=== PATIENT | male | born 1950 | race Caucasian/White ===

== ENCOUNTER 2016-08-02 10:37 | Inpatient (IN) | payer MEDICAID ==
[~2016-08-02] VITALS: Ht 180.3 cm; Wt 82.3 kg
[2016-08-02] MEDS ORDERED: SODIUM CHLORIDE 0.9% 1,000ML IVBOLUS ONE (11:30)
[2016-08-02] MEDS ORDERED: SODIUM CHLORIDE FLUSH 10ML SYR IVF ONE (11:30)
[2016-08-02 11:40] LABS: ASPARTATE AMINO TRANSFERASE 33 U/L (15-37); BLOOD UREA NITROGEN 16 mg/dL (7-18)
[2016-08-02 11:48] LABS: DIFF TOTAL CELLS COUNTED 100 CELL DIFF
[2016-08-02 11:50] LABS: IS PT STATUS REG ER OR PRE ER? YES
[2016-08-02 11:51] LABS: ANISOCYTOSIS 1+; VERIFY COUNTS? YES
[2016-08-02] MEDS ORDERED: HEPARIN 5,000 UNITS/ML, 1ML IV ONE (13:00)
[2016-08-02] MEDS ORDERED: SODIUM CHLORIDE 0.9% 1,000 ML IV SCH (13:33)
[2016-08-02] MEDS ORDERED: MORPHINE SULFATE 4 MG/ML, 1ML IVPush PRN (14:00)
[2016-08-02] MEDS ORDERED: POLYETHYLENE GLYCOL 17 GM PACKET PO PRN (14:00)
[2016-08-02] MEDS ORDERED: LABETALOL 5MG/ML, 20ML IV PRN (14:00)
[2016-08-02] MEDS ORDERED: DOCUSATE 100 MG CAPSULE PO PRN (14:00)
[2016-08-02] MEDS ORDERED: GUAIFENESIN/DM 200-20MG, 10ML UDC PO PRN (14:00)
[2016-08-02] MEDS ORDERED: HYDROcodone/APAP 5/325 TABLET PO PRN (14:00)
[2016-08-02] MEDS ORDERED: PROMETHAZINE 25 MG/ML, 1ML IM PRN (14:00)
[2016-08-02] MEDS ORDERED: LORazepam 2 MG/ML, 1ML IVPush PRN (14:00)
[2016-08-02] MEDS ORDERED: ACETAMINOPHEN 325 MG TABLET PO PRN (14:00)
[2016-08-02] MEDS ORDERED: HEPARIN 5,000 UNITS/ML, 1ML ONE (14:23)
[2016-08-02] MEDS ORDERED: HEPARIN 25,000 UNITS/500ML PMX 500 ML ONE (14:24)
[2016-08-02] MEDS: HEPARIN 25,000 UNITS/500ML PMX 500 ML IV PRN (14:36)
[2016-08-02 15:30] VITALS: BP 110/81
[2016-08-02] MEDS ORDERED: ALBUTEROL SULFATE 2.5 MG/3 ML NPPB PRN (17:30)
[2016-08-02 18:14] LABS: IS PT STATUS REG ER OR PRE ER? NO
[2016-08-02] MEDS ORDERED: OMNIPAQUE 350 MG/ML, 100ML BOTTLE ONE (18:15)
[2016-08-02] MEDS ORDERED: ASPIRIN 81 MG TABLET CHEW PO ONE (19:30)
[2016-08-02 20:47] VITALS: BP 138/95
[2016-08-02] MEDS: NICOTINE 7 MG/24 HR PATCH.TD24 TD SCH (21:38)
[2016-08-02] MEDS: ATORVASTATIN 80 MG TABLET PO SCH (21:38)
[2016-08-02] MEDS: HEPARIN 5,000 UNITS/ML, 1ML IV PRN (22:22)
[2016-08-03 00:13] LABS: IS PT STATUS REG ER OR PRE ER? NO
[2016-08-03 05:18] LABS: BLOOD UREA NITROGEN 20 mg/dL (7-18)
[2016-08-03 05:26] LABS: ASPARTATE AMINO TRANSFERASE 34 U/L (15-37)
[2016-08-03] MEDS: HEPARIN 5,000 UNITS/ML, 1ML IV PRN ×3 (05:37→20:59)
[2016-08-03 06:32] VITALS: BP 127/81
[2016-08-03 06:47] LABS: DIFF TOTAL CELLS COUNTED 100 CELL DIFF
[2016-08-03 06:48] LABS: VERIFY COUNTS? YES
[2016-08-03 06:49] LABS: ANISOCYTOSIS 1+
[2016-08-03] MEDS ORDERED: POTASSIUM CHLORIDE 20 MEQ TAB.ER.PRT PO ONE (07:30)
[2016-08-03] MEDS ORDERED: ASPIRIN 81 MG TABLET CHEW PO SCH (09:00)
[2016-08-03 09:31] VITALS: BP_SYST 123; BP_SYST 129; BP_SYST 132; BP_DIAS 77; BP_DIAS 83; BP_DIAS 87
[2016-08-03 13:06] LABS: DAU SCREEN DISCLAIMER
[2016-08-03 13:19] LABS: PATH.CAST-FLAG NOT PRESENT; SPERM-FLAG NOT PRESENT; SRC-FLAG NOT PRESENT; XTAL-FLAG NOT PRESENT; YLC-FLAG NOT PRESENT
[2016-08-03] MEDS: HEPARIN 25,000 UNITS/500ML PMX 500 ML IV PRN (14:34)
[2016-08-03] MEDS: NICOTINE 7 MG/24 HR PATCH.TD24 TD SCH (14:35)
[2016-08-03 16:23] VITALS: BP 144/85
[2016-08-03] MEDS: ATORVASTATIN 80 MG TABLET PO SCH (21:00)
[2016-08-03 21:35] VITALS: BP 151/95
[2016-08-04 01:10] VITALS: BP 147/92
[2016-08-04 03:18] LABS: BLOOD UREA NITROGEN 12 mg/dL (7-18)
[2016-08-04 07:08] VITALS: BP 148/88
[2016-08-04] MEDS ORDERED: POTASSIUM CHLORIDE 20 MEQ TAB.ER.PRT PO ONE (08:00)
[2016-08-04 09:01] LABS: HIT LOT CART23704/KIT23705
[2016-08-04 10:36] LABS: HIT OBC PASS; HIT RESULT NEGATIVE (NEGATIVE)
[2016-08-04] MEDS: DABIGATRAN 150 MG CAPSULE PO SCH ×2 (10:59→21:45)
[2016-08-04] MEDS: NICOTINE 7 MG/24 HR PATCH.TD24 TD SCH (14:00)
[2016-08-04 15:53] VITALS: BP 159/97
[2016-08-04 20:28] VITALS: BP 155/95
[2016-08-04] MEDS: ATORVASTATIN 80 MG TABLET PO SCH (21:45)
[2016-08-05 01:55] VITALS: BP 163/96
[2016-08-05 06:52] VITALS: BP 174/113
[2016-08-05 07:28] LABS: BLOOD UREA NITROGEN 9 mg/dL (7-18)
[2016-08-05] MEDS ORDERED: hydrALAzine 20 MG/ML, 1ML IV PRN (08:30)
[2016-08-05] MEDS: LISINOPRIL 10 MG TABLET PO SCH ×2 (09:45→20:58)
[2016-08-05 09:47] VITALS: BP 158/88
[2016-08-05 11:28] LABS: DIFF TOTAL CELLS COUNTED 100 CELL DIFF
[2016-08-05 11:31] LABS: VERIFY COUNTS? YES
[2016-08-05 11:33] LABS: ANISOCYTOSIS 1+; LARGE PLATELETS 1+
[2016-08-05 12:25] VITALS: BP 148/88
[2016-08-05] MEDS: DABIGATRAN 150 MG CAPSULE PO SCH ×2 (13:31→20:58)
[2016-08-05] MEDS: NICOTINE 7 MG/24 HR PATCH.TD24 TD SCH (14:00)
[2016-08-05] MEDS ORDERED: BENZ100C PO (14:01)
[2016-08-05] MEDS ORDERED: GUAI5SYR PO (14:01)
[2016-08-05] MEDS ORDERED: DABI150C PO (14:01)
[2016-08-05] MEDS ORDERED: LISI-167 PO (14:01)
[2016-08-05] MEDS: BENZONATATE 100 MG CAPSULE PO SCH ×2 (16:00→21:02)
[2016-08-05] MEDS ORDERED: GUAIFENESIN/DM 200-20MG, 10ML UDC PO PRN (16:00)
[2016-08-05 18:49] VITALS: BP 152/106
[2016-08-05] MEDS: ATORVASTATIN 80 MG TABLET PO SCH (20:58)
[2016-08-06 02:26] VITALS: BP 167/101
[2016-08-06 07:02] VITALS: BP 149/93
[2016-08-06 08:02] LABS: DIFF TOTAL CELLS COUNTED 100 CELL DIFF
[2016-08-06 08:10] LABS: VERIFY COUNTS? YES
[2016-08-06] MEDS: LISINOPRIL 10 MG TABLET PO SCH (09:16)
[2016-08-06] MEDS: DABIGATRAN 150 MG CAPSULE PO SCH (09:16)
[2016-08-06] MEDS: BENZONATATE 100 MG CAPSULE PO SCH (09:16)
== END 2016-08-06 11:56 | disposition home or self-care (01) | DRG 280 ==
LOC: ED 12:55 → EDIP 12:56 → 5SO 15:10 → DCLOUNGE 08-06 11:36
PROVIDERS: ADMIT Family Medicine
DX: I82.431 Acute embolism and thrombosis of right popliteal vein (principal); I26.09 Other pulmonary embolism with acute cor pulmonale; I21.4 Non-ST elevation (NSTEMI) myocardial infarction; N17.0 Acute kidney failure with tubular necrosis; J96.01 Acute respiratory failure with hypoxia; D68.9 Coagulation defect, unspecified; D68.59 Other primary thrombophilia; I82.441 Acute embolism and thrombosis of right tibial vein; F20.9 Schizophrenia, unspecified; I45.10 Unspecified right bundle-branch block; D72.829 Elevated white blood cell count, unspecified; D64.9 Anemia, unspecified; D75.82 Heparin induced thrombocytopenia (HIT); F17.210 Nicotine dependence, cigarettes, uncomplicated; Z59.0 Homelessness; Z84.1 Family history of disorders of kidney and ureter
CPT/HCPCS: 36415; 71010; 71275; 80048; 80053; 80061; 80307; 81001; 82542; 83735; 83880; 84100; 84439; 84443; 84484; 85025; 85379; 85520; 85610; 85730; 86022; 93005; 93306; 93880; 93970; J1644; Q9967; J7030

== ENCOUNTER 2016-08-07 15:00 | Emergency (ER) | payer MEDICARE, MEDICAID ==
[~2016-08-07] VITALS: Ht 180.3 cm; Wt 90.6 kg
[~2016-08-07 15:00] MED LIST: BENZ100C PO; DABI150C PO; GUAI5SYR PO; LISI-167 PO
[2016-08-07] MEDS ORDERED: SODIUM CHLORIDE 0.9% 1,000ML IVBOLUS ONE (16:00)
[2016-08-07 16:08] LABS: BLOOD UREA NITROGEN 33 mg/dL (7-18)
[2016-08-07 16:14] LABS: ASPARTATE AMINO TRANSFERASE 67 U/L (15-37)
[2016-08-07 18:37] VITALS: BP 114/78
== END 2016-08-07 18:51 | disposition home or self-care (01) ==
LOC: ED 18:30
DX: R53.1 Weakness (principal); F17.210 Nicotine dependence, cigarettes, uncomplicated; Z86.711 Personal history of pulmonary embolism; Z86.718 Personal history of other venous thrombosis and embolism; Z59.0 Homelessness
CPT/HCPCS: 36415; 71010; 80053; 80307; 85025; 85610; 93005; 96360; 96361; 99285; J7030

== ENCOUNTER 2016-08-10 19:56 | Emergency (ER) | payer MEDICARE, MEDICAID ==
[~2016-08-10] VITALS: Ht 180.3 cm; Wt 94.0 kg
[2016-08-10] MEDS ORDERED: SODIUM CHLORIDE 0.9% 1,000 ML IV ONE (20:59)
[2016-08-10] MEDS ORDERED: SODIUM CHLORIDE FLUSH 10ML SYR IVF ONE (21:00)
[2016-08-10 21:32] LABS: BLOOD UREA NITROGEN 17 mg/dL (7-18)
[2016-08-10 21:52] LABS: IS PT STATUS REG ER OR PRE ER? YES
[2016-08-10] MEDS ORDERED: OMNIPAQUE 350 MG/ML, 100ML BOTTLE ONE (22:07)
[2016-08-10 23:01] VITALS: BP 133/73
== END 2016-08-10 23:32 | disposition home or self-care (01) ==
LOC: ED 23:26
DX: R06.00 Dyspnea, unspecified (principal); R53.1 Weakness; Z72.89 Other problems related to lifestyle; R05 Cough; F17.200 Nicotine dependence, unspecified, uncomplicated; Z86.711 Personal history of pulmonary embolism; Z86.718 Personal history of other venous thrombosis and embolism
CPT/HCPCS: 36415; 71020; 71275; 80048; 82040; 83880; 84484; 85025; 85610; 85730; 93005; 96360; 96361; 99285; J7030; Q9967

== ENCOUNTER 2016-08-12 18:56 | Emergency (ER) | payer MEDICARE, MEDICAID ==
[~2016-08-12] VITALS: Ht 180.3 cm; Wt 94.2 kg
[2016-08-12 18:58] VITALS: BP 194/108
[2016-08-12] MEDS ORDERED: DABIGATRAN 150 MG CAPSULE PO ONE (20:30)
== END 2016-08-12 21:08 | disposition home or self-care (01) ==
LOC: ED 21:02
DX: I82.491 Acute embolism and thrombosis of other specified deep vein of right lower extremity (principal); Z86.711 Personal history of pulmonary embolism; J96.90 Respiratory failure, unspecified, unspecified whether with hypoxia or hypercapnia; F17.200 Nicotine dependence, unspecified, uncomplicated
CPT/HCPCS: 71010; 99283

== ENCOUNTER 2017-05-13 23:15 | Emergency (ER) | payer MEDICARE, MEDICAID ==
[~2017-05-13] VITALS: Ht 182.9 cm; Wt 87.9 kg
[2017-05-13 23:57] VITALS: BP 134/68
== END 2017-05-14 00:04 | disposition home or self-care (01) ==
LOC: ED 23:36
DX: Z00.00 Encounter for general adult medical examination without abnormal findings (principal); I10 Essential (primary) hypertension
CPT/HCPCS: 99283

== ENCOUNTER 2020-03-01 11:16 | Inpatient (IN) | payer MEDICAID, MEDICARE, OTHER ==
[~2020-03-01] VITALS: Ht 182.9 cm; Wt 92.3 kg
--- NOTE | 2020-03-01 11:26 | NUR ---
BIB [facility], PT LAYING ON SIDEWALK, STATES UNABLE TO WALK. BROUGHT HERE, PT DENIES ETOH USE TODAY. DENIES CP/SOB. FSBG 90 PER EMS. PT AO X4 PT ARRIVES WITH BUGS CRAWLING ON HIM. CHARGE UPDATED, PT NEEDING DECON AND NEW ROOM PLACEMENT.
[2020-03-01] MEDS ORDERED: PIPERONYL BUTOXIDE/PYRETHRINS 4OZ. SHAMPOO ONE (11:57)
[2020-03-01] MEDS ORDERED: PIPERONYL BUTOXIDE/PYRETHRINS 4OZ. SHAMPOO TP SCH (12:00)
--- NOTE | 2020-03-01 12:44 | NUR ---
DECONED PT FOR BUGS. PT REFUSED FOR US TO SHAVE HIS MATTED HAIR AND BEARED.
--- NOTE | 2020-03-01 12:49 | NUR ---
PT WITH MULTIPLE INCONTINENT LOOSE STOOLS IN DECON RM AND IN WHEELCHAIR COMING BACK TO CLEAN RM.
--- NOTE | 2020-03-01 12:58 | NUR ---
DELAY IN CARE D/T DECON PROCESS. LAB IN TO DRAW PT AT THIS TIME. PT REQUESTING WATER, WILL WAIT FOR LAB RESULTS PER ERP
--- NOTE | 2020-03-01 13:00 | NUR ---
PT BELONGINGS PLACED IN DOUBLE BAGS AND IN RM WITH PT
[2020-03-01 13:09] LABS: BASOPHILS % (AUTO) 0 % (0-1); EOSINOPHILS % (AUTO) 0 % (1-7); LYMPHOCYTES % (AUTO) 6 % (22-44); MEAN CORPUSCULAR HEMOGLOBIN 33.1 pg (27.5-34.5); MEAN CORPUSCULAR HGB CONC 33.5 g/dL (33.2-36.2); MONOCYTES % (AUTO) 6 % (2-9); NEUTROPHILS % (AUTO) 89 % (42-75); PLATELET COUNT 101 x10^3/uL (130-400); RED BLOOD COUNT 5.42 x10^6/uL (4.38-5.82); RED CELL DISTRIBUTION WIDTH 13.7 % (9.4-14.8)
[2020-03-01 13:19] LABS: ALBUMIN 3.1 g/dL (3.4-5.0); ANION GAP 12 mmol/L (5-15); CALCIUM 8.5 mg/dL (8.5-10.1); CHLORIDE 107 mmol/L (98-107); CREATININE 1.24 mg/dL (0.7-1.3)
[2020-03-01 13:57] LABS: MD SCAN
[2020-03-01] MEDS ORDERED: SODIUM CHLORIDE 0.9% 1,000ML IVBOLUS ONE (14:30)
[2020-03-01] MEDS ORDERED: ONDANSETRON 2MG/ML, 2ML IVPush PRN (16:00)
[2020-03-01] MEDS ORDERED: ONDANSETRON ODT 4 MG PO PRN (16:00)
--- NOTE | 2020-03-01 16:00 | NUR ---
PIV INITIATED PER BREAK RN, PT MEDICATED PER JUN. TO BE ADMITTED
--- NOTE | 2020-03-01 16:45 | NUR ---
REPORT GIVEN TO RECANJALI JACKSON
--- NOTE | 2020-03-01 17:10 | NUR ---
RECIEVING RN CALLED TO INFORM ORDER HAS BEEN CHANGED TO COVID R/O
[2020-03-01] MEDS ORDERED: CEFTRIAXONE PMX 1GM/50ML 50 ML ONE (17:16)
[2020-03-01] MEDS: SODIUM CHLORIDE 0.9% 1,000 ML IV SCH ×2 (17:32→23:14)
[2020-03-01] MEDS: CEFTRIAXONE PMX 1GM/50ML 50 ML IV SCH (17:32)
--- NOTE | 2020-03-01 17:33 | NUR ---
COVID SWABBED OBTAINED AND WALKED TO LAB. PT MEDICATED PER MAR, VSS, MEAL TRAY ORDERED
--- NOTE | 2020-03-01 19:03 | NUR ---
Report received from RENETTA Jolly. This RN to assume care.
--- NOTE | 2020-03-01 19:45 | NUR ---
Provided sandwich to patient.
--- NOTE | 2020-03-01 21:23 | NUR ---
Report given to RENETTA Krishnan. Patient transferred to room 334.
[2020-03-01 21:37] VITALS: BP 122/89
[2020-03-01] MEDS: DOXYCYCLINE 100 MG in DEXTROSE 5% 250 ML IV SCH (23:14)
[2020-03-01] MEDS: ENOXAPARIN 40 MG/0.4 ML SQ SCH (23:15)
[2020-03-02 00:48] VITALS: BP 120/88
[2020-03-02 06:12] LABS: CHLORIDE 110 mmol/L (98-107)
[2020-03-02 06:34] LABS: ALANINE AMINOTRANSFERASE 97 U/L (12-78); ALBUMIN 2.6 g/dL (3.4-5.0); ALKALINE PHOSPHATASE 73 U/L (45-117); ANION GAP 12 mmol/L (5-15); BILIRUBIN,TOTAL 0.8 mg/dL (0.2-1.0); CREATINE KINASE, TOTAL 6622 U/L (39-308); TOTAL PROTEIN 6.9 g/dL (6.4-8.2)
[2020-03-02 06:50] VITALS: BP 127/97
[2020-03-02 07:41] LABS: BASOPHILS % (AUTO) 0 % (0-1); EOSINOPHILS % (AUTO) 0 % (1-7); LYMPHOCYTES % (AUTO) 9 % (22-44); MEAN CORPUSCULAR HEMOGLOBIN 32.8 pg (27.5-34.5); MEAN CORPUSCULAR HGB CONC 33.6 g/dL (33.2-36.2); MEAN PLATELET VOLUME 9.7 fL (7.4-10.4); MONOCYTES % (AUTO) 6 % (2-9); NEUTROPHILS % (AUTO) 85 % (42-75); PLATELET COUNT 106 x10^3/uL (130-400); RED BLOOD COUNT 4.75 x10^6/uL (4.38-5.82); RED CELL DISTRIBUTION WIDTH 13.9 % (9.4-14.8)
[2020-03-02 07:56] LABS: MD NO
[2020-03-02] MEDS: SODIUM CHLORIDE 0.9% 1,000 ML IV SCH ×3 (11:38→20:20)
[2020-03-02] MEDS: DOXYCYCLINE 100 MG in DEXTROSE 5% 250 ML IV SCH ×2 (11:38→23:29)
[2020-03-02 12:51] VITALS: BP 120/87
[2020-03-02] MEDS: CEFTRIAXONE PMX 1GM/50ML 50 ML IV SCH (17:04)
[2020-03-02 19:07] VITALS: BP 113/80
[2020-03-02] MEDS: ENOXAPARIN 40 MG/0.4 ML SQ SCH (21:00)
[2020-03-03] MEDS ORDERED: PIPERONYL BUTOXIDE/PYRETHRINS 4OZ. SHAMPOO TP SCH (00:43)
[2020-03-03 01:20] VITALS: BP 122/94
[2020-03-03] MEDS: SODIUM CHLORIDE 0.9% 1,000 ML IV SCH ×3 (05:10→22:00)
[2020-03-03 05:18] LABS: MEAN CORPUSCULAR HEMOGLOBIN 33.1 pg (27.5-34.5); MEAN CORPUSCULAR HGB CONC 34.2 g/dL (33.2-36.2); MEAN PLATELET VOLUME 8.9 fL (7.4-10.4); PLATELET COUNT 118 x10^3/uL (130-400); RED BLOOD COUNT 4.31 x10^6/uL (4.38-5.82); RED CELL DISTRIBUTION WIDTH 13.9 % (9.4-14.8)
[2020-03-03 05:23] LABS: ALANINE AMINOTRANSFERASE 90 U/L (12-78); ALBUMIN 2.3 g/dL (3.4-5.0); ANION GAP 7 mmol/L (5-15); CALCIUM 7.8 mg/dL (8.5-10.1); CHLORIDE 108 mmol/L (98-107); CREATININE 1.03 mg/dL (0.7-1.3)
[2020-03-03 05:37] LABS: ALKALINE PHOSPHATASE 65 U/L (45-117); BILIRUBIN,TOTAL 0.7 mg/dL (0.2-1.0); CREATINE KINASE, TOTAL 5161 U/L (39-308); TOTAL PROTEIN 6.2 g/dL (6.4-8.2)
[2020-03-03 06:14] LABS: BASOPHILS % (AUTO) 0 % (0-1); EOSINOPHILS % (AUTO) 0 % (1-7); LYMPHOCYTES % (AUTO) 6 % (22-44); MONOCYTES % (AUTO) 4 % (2-9); NEUTROPHILS % (AUTO) 90 % (42-75)
[2020-03-03 06:15] LABS: MD SCAN
[2020-03-03 07:49] VITALS: BP 137/93
[2020-03-03 10:06] LABS: BASOPHILS % (AUTO) 0 % (0-1); EOSINOPHILS % (AUTO) 0 % (1-7); LYMPHOCYTES % (AUTO) 9 % (22-44); MEAN CORPUSCULAR HEMOGLOBIN 32.7 pg (27.5-34.5); MEAN CORPUSCULAR HGB CONC 33.1 g/dL (33.2-36.2); MEAN PLATELET VOLUME 9.9 fL (7.4-10.4); MONOCYTES % (AUTO) 4 % (2-9); NEUTROPHILS % (AUTO) 86 % (42-75); PLATELET COUNT 109 x10^3/uL (130-400); RED BLOOD COUNT 4.65 x10^6/uL (4.38-5.82); RED CELL DISTRIBUTION WIDTH 14.1 % (9.4-14.8)
[2020-03-03 10:07] LABS: MD NO
[2020-03-03 10:17] LABS: ANION GAP 7 mmol/L (5-15); CALCIUM 7.8 mg/dL (8.5-10.1); CHLORIDE 112 mmol/L (98-107); CREATININE 1.02 mg/dL (0.7-1.3); INTERNATIONAL NORMALIZED RATIO 1.22 (0.93-1.1); PROTHROMBIN TIME 12.9 Seconds (9.6-11.5)
[2020-03-03] MEDS: DOXYCYCLINE 100 MG in DEXTROSE 5% 250 ML IV SCH (12:14)
[2020-03-03 13:25] VITALS: BP 165/103
[2020-03-03 13:25] LABS: AMPHETAMINE SCREEN, URINE Negative (Negative); BARBITURATE SCREEN, URINE Negative (Negative); BENZODIAZEPINE SCREEN, URINE Negative (Negative); CANNABINOID SCREEN, URINE Negative (Negative); COCAINE SCREEN, URINE Negative (Negative); METHADONE SCREEN, URINE Negative (Negative); OPIATE SCREEN, URINE Negative (Negative)
[2020-03-03 13:26] VITALS: BP 176/102
[2020-03-03] MEDS: CEFTRIAXONE PMX 1GM/50ML 50 ML IV SCH (17:37)
[2020-03-03 20:48] VITALS: BP 153/94
[2020-03-03] MEDS: ENOXAPARIN 40 MG/0.4 ML SQ SCH (21:52)
[2020-03-04] MEDS: DOXYCYCLINE 100 MG in DEXTROSE 5% 250 ML IV SCH ×3 (00:38→23:48)
[2020-03-04] MEDS ORDERED: LIDOCAINE GEL 2%, 5ML TP ONE (02:00)
[2020-03-04] MEDS ORDERED: MORPHINE SULFATE 4 MG/ML, 1ML IVPush ONE (02:00)
[2020-03-04 02:41] VITALS: BP 129/81
[2020-03-04 03:41] LABS: MICROSCOPIC NOT IND
[2020-03-04 05:11] LABS: BASOPHILS % (AUTO) 1 % (0-1); EOSINOPHILS % (AUTO) 2 % (1-7); LYMPHOCYTES % (AUTO) 14 % (22-44); MEAN CORPUSCULAR HEMOGLOBIN 32.6 pg (27.5-34.5); MEAN CORPUSCULAR HGB CONC 33.5 g/dL (33.2-36.2); MONOCYTES % (AUTO) 5 % (2-9); NEUTROPHILS % (AUTO) 79 % (42-75); RED BLOOD COUNT 3.91 x10^6/uL (4.38-5.82); RED CELL DISTRIBUTION WIDTH 13.8 % (9.4-14.8)
[2020-03-04 05:21] LABS: CHLORIDE 111 mmol/L (98-107)
[2020-03-04 05:38] LABS: ALANINE AMINOTRANSFERASE 82 U/L (12-78); ALKALINE PHOSPHATASE 79 U/L (45-117); ANION GAP 7 mmol/L (5-15); BILIRUBIN,TOTAL 0.6 mg/dL (0.2-1.0); CALCIUM 7.3 mg/dL (8.5-10.1); CREATINE KINASE, TOTAL 3128 U/L (39-308); CREATININE 0.65 mg/dL (0.7-1.3); TOTAL PROTEIN 5.5 g/dL (6.4-8.2)
[2020-03-04 07:54] LABS: MEAN PLATELET VOLUME 8.1 fL (7.4-10.4); PLATELET COUNT 78 x10^3/uL (130-400)
[2020-03-04 07:56] LABS: MD SCAN
[2020-03-04] MEDS: SODIUM CHLORIDE 0.9% 1,000 ML IV SCH (08:47)
[2020-03-04 08:50] VITALS: BP 158/91
[2020-03-04 12:01] VITALS: BP 172/109
[2020-03-04 12:06] VITALS: BP 145/107
[2020-03-04 12:08] VITALS: BP 168/109
[2020-03-04] MEDS: CEFTRIAXONE PMX 1GM/50ML 50 ML IV SCH (16:29)
[2020-03-04] MEDS ORDERED: HEPARIN 5,000 UNITS/ML, 1ML IV ONE (17:30)
[2020-03-04 18:47] VITALS: BP 157/91
[2020-03-04 19:47] LABS: BASOPHILS % (AUTO) 1 % (0-1); EOSINOPHILS % (AUTO) 1 % (1-7); LYMPHOCYTES % (AUTO) 16 % (22-44); MEAN CORPUSCULAR HEMOGLOBIN 32.4 pg (27.5-34.5); MEAN CORPUSCULAR HGB CONC 33.3 g/dL (33.2-36.2); MEAN PLATELET VOLUME 9.8 fL (7.4-10.4); MONOCYTES % (AUTO) 6 % (2-9); NEUTROPHILS % (AUTO) 77 % (42-75); PLATELET COUNT 111 x10^3/uL (130-400); RED CELL DISTRIBUTION WIDTH 13.7 % (9.4-14.8)
[2020-03-04 19:56] LABS: MD NO
[2020-03-04] MEDS: ASCORBIC ACID 500 MG TABLET PO SCH (20:40)
[2020-03-04] MEDS: HEPARIN 25,000 UNITS/250ML PMX 250 ML IV PRN (20:49)
[2020-03-05 00:16] VITALS: BP 151/94
[2020-03-05 03:27] LABS: BASOPHILS % (AUTO) 1 % (0-1); EOSINOPHILS % (AUTO) 1 % (1-7); LYMPHOCYTES % (AUTO) 13 % (22-44); MEAN CORPUSCULAR HEMOGLOBIN 32.6 pg (27.5-34.5); MEAN CORPUSCULAR HGB CONC 33.6 g/dL (33.2-36.2); MEAN PLATELET VOLUME 9.8 fL (7.4-10.4); MONOCYTES % (AUTO) 6 % (2-9); NEUTROPHILS % (AUTO) 80 % (42-75); PLATELET COUNT 117 x10^3/uL (130-400); RED BLOOD COUNT 3.96 x10^6/uL (4.38-5.82); RED CELL DISTRIBUTION WIDTH 13.6 % (9.4-14.8)
[2020-03-05 03:34] LABS: ALANINE AMINOTRANSFERASE 82 U/L (12-78); ALBUMIN 1.9 g/dL (3.4-5.0); ANION GAP 6 mmol/L (5-15); CALCIUM 7.3 mg/dL (8.5-10.1); CHLORIDE 105 mmol/L (98-107); CREATININE 0.63 mg/dL (0.7-1.3); MD NO
[2020-03-05 03:36] LABS: ALKALINE PHOSPHATASE 94 U/L (45-117); BILIRUBIN,TOTAL 0.7 mg/dL (0.2-1.0); TOTAL PROTEIN 5.6 g/dL (6.4-8.2)
[2020-03-05] MEDS: HEPARIN 5,000 UNITS/ML, 1ML IV PRN ×3 (03:50→21:46)
[2020-03-05 07:47] VITALS: BP 164/99
[2020-03-05] MEDS: CHOLECALCIFEROL 1,000 UNIT TABLET PO SCH (09:04)
[2020-03-05] MEDS: ZINC SULFATE 220 MG CAPSULE PO SCH (09:04)
[2020-03-05] MEDS: ASCORBIC ACID 500 MG TABLET PO SCH ×2 (09:04→17:08)
[2020-03-05] MEDS: FOLIC ACID 1 MG TABLET PO SCH (09:04)
[2020-03-05] MEDS: DOXYCYCLINE 100 MG in DEXTROSE 5% 250 ML IV SCH (11:48)
[2020-03-05 12:16] VITALS: BP 139/87
[2020-03-05] MEDS: CEFTRIAXONE PMX 1GM/50ML 50 ML IV SCH (17:08)
[2020-03-05] MEDS ORDERED: GADOTERATE 10 MMOL/20 ML SYR ONE (17:56)
[2020-03-05] MEDS: HEPARIN 25,000 UNITS/250ML PMX 250 ML IV PRN (18:11)
[2020-03-05 18:50] VITALS: BP 151/91
[2020-03-06 00:40] VITALS: BP 158/78
[2020-03-06] MEDS: DOXYCYCLINE 100 MG in DEXTROSE 5% 250 ML IV SCH ×2 (00:54→12:52)
[2020-03-06] MEDS: HEPARIN 5,000 UNITS/ML, 1ML IV PRN ×2 (06:05→15:03)
[2020-03-06 08:00] VITALS: BP 139/99
[2020-03-06] MEDS: ASCORBIC ACID 500 MG TABLET PO SCH ×4 (08:00→17:28)
[2020-03-06] MEDS: FOLIC ACID 1 MG TABLET PO SCH ×2 (09:00→10:43)
[2020-03-06] MEDS: CHOLECALCIFEROL 1,000 UNIT TABLET PO SCH ×2 (09:00→10:43)
[2020-03-06] MEDS: ZINC SULFATE 220 MG CAPSULE PO SCH ×2 (09:00→10:43)
[2020-03-06] MEDS: HEPARIN 25,000 UNITS/250ML PMX 250 ML IV PRN (13:45)
[2020-03-06 14:38] VITALS: BP 126/85
[2020-03-06 16:44] VITALS: BP 107/68
[2020-03-06] MEDS: CEFTRIAXONE PMX 1GM/50ML 50 ML IV SCH (17:28)
[2020-03-06 20:11] VITALS: BP 92/56
[2020-03-06] MEDS: APIXABAN 5 MG TABLET PO SCH ×2 (20:59→21:09)
[2020-03-07] VITALS (9 sets, daily range): BP systolic 79–113; BP diastolic 52–72
[2020-03-07] MEDS: DOXYCYCLINE 100 MG in DEXTROSE 5% 250 ML IV SCH ×3 (00:55→23:46)
[2020-03-07] MEDS: HEPARIN 25,000 UNITS/250ML PMX 250 ML IV PRN (05:30)
[2020-03-07 05:44] LABS: ALBUMIN 1.8 g/dL (3.4-5.0); ANION GAP 8 mmol/L (5-15); CALCIUM 7.5 mg/dL (8.5-10.1); CHLORIDE 100 mmol/L (98-107); CREATININE 0.68 mg/dL (0.7-1.3)
[2020-03-07 06:01] LABS: ALANINE AMINOTRANSFERASE 92 U/L (12-78); ALKALINE PHOSPHATASE 90 U/L (45-117); BILIRUBIN,TOTAL 1.1 mg/dL (0.2-1.0); TOTAL PROTEIN 5.5 g/dL (6.4-8.2)
[2020-03-07 06:03] LABS: CREATINE KINASE, TOTAL 1414 U/L (39-308)
[2020-03-07] MEDS: ASCORBIC ACID 500 MG TABLET PO SCH ×2 (08:00→16:46)
[2020-03-07 08:23] LABS: BASOPHILS % (AUTO) 0 % (0-1); EOSINOPHILS % (AUTO) 0 % (1-7); LYMPHOCYTES % (AUTO) 9 % (22-44); MEAN CORPUSCULAR HEMOGLOBIN 33.3 pg (27.5-34.5); MEAN CORPUSCULAR HGB CONC 34.7 g/dL (33.2-36.2); MEAN PLATELET VOLUME 7.9 fL (7.4-10.4); MONOCYTES % (AUTO) 5 % (2-9); NEUTROPHILS % (AUTO) 85 % (42-75); PLATELET COUNT 109 x10^3/uL (130-400); RED BLOOD COUNT 2.51 x10^6/uL (4.38-5.82); RED CELL DISTRIBUTION WIDTH 13.2 % (9.4-14.8)
[2020-03-07] MEDS: FOLIC ACID 1 MG TABLET PO SCH (09:00)
[2020-03-07] MEDS: ZINC SULFATE 220 MG CAPSULE PO SCH (09:00)
[2020-03-07] MEDS: CHOLECALCIFEROL 1,000 UNIT TABLET PO SCH (09:00)
[2020-03-07 09:24] LABS: MD SCAN
[2020-03-07] MEDS: APIXABAN 5 MG TABLET PO SCH (10:46)
[2020-03-07] MEDS ORDERED: SODIUM CHLORIDE 0.9% 1,000 ML IV SCH (13:30)
[2020-03-07] MEDS ORDERED: SODIUM CHLORIDE 0.9%, 500ML IVBOLUS ONE ×2 (15:00→21:30)
[2020-03-07] MEDS: CEFTRIAXONE PMX 1GM/50ML 50 ML IV SCH (16:51)
[2020-03-07] MEDS ORDERED: ENOXAPARIN 40 MG/0.4 ML SQ SCH (21:00)
[2020-03-08] VITALS (8 sets, daily range): BP systolic 103–119; BP diastolic 60–72
[2020-03-08 05:15] LABS: ALANINE AMINOTRANSFERASE 119 U/L (12-78); ALBUMIN 1.7 g/dL (3.4-5.0); ANION GAP 8 mmol/L (5-15); CHLORIDE 103 mmol/L (98-107); CREATININE 0.85 mg/dL (0.7-1.3)
[2020-03-08 05:17] LABS: ALKALINE PHOSPHATASE 109 U/L (45-117); BILIRUBIN,TOTAL 0.9 mg/dL (0.2-1.0); TOTAL PROTEIN 4.9 g/dL (6.4-8.2)
[2020-03-08] MEDS ORDERED: ASPIRIN 325 MG TABLET PO SCH (06:00)
[2020-03-08 07:01] LABS: BASOPHILS % (AUTO) 0 % (0-1); EOSINOPHILS % (AUTO) 2 % (1-7); LYMPHOCYTES % (AUTO) 13 % (22-44); MEAN CORPUSCULAR HEMOGLOBIN 33.6 pg (27.5-34.5); MEAN PLATELET VOLUME 8.1 fL (7.4-10.4); MONOCYTES % (AUTO) 8 % (2-9); NEUTROPHILS % (AUTO) 77 % (42-75); PLATELET COUNT 268 x10^3/uL (130-400); RED BLOOD COUNT 1.98 x10^6/uL (4.38-5.82); RED CELL DISTRIBUTION WIDTH 13.7 % (9.4-14.8)
[2020-03-08 07:35] LABS: MD SCAN
[2020-03-08] MEDS: PANTOPRAZOLE 40 MG IV IVPush SCH ×2 (09:29→20:54)
[2020-03-08] MEDS: TAMSULOSIN 0.4 MG CAP.ER.24H PO SCH (09:29)
[2020-03-08] MEDS: SODIUM CHLORIDE 0.9% 1,000 ML IV SCH ×2 (09:30→20:10)
[2020-03-08] MEDS ORDERED: OMNIPAQUE 350 MG/ML, 100ML BOTTLE ONE (09:41)
[2020-03-08] MEDS: DOXYCYCLINE 100 MG in DEXTROSE 5% 250 ML IV SCH ×2 (12:30→23:51)
[2020-03-08] MEDS ORDERED: LIDOCAINE 1%, 10ML ONE (14:32)
[2020-03-08] MEDS ORDERED: NALOXONE 1 MG/ML, 2ML ONE (14:33)
[2020-03-08] MEDS ORDERED: FENTANYL PF 100 MCG/2ML ONE (14:33)
[2020-03-08] MEDS: CEFTRIAXONE PMX 1GM/50ML 50 ML IV SCH (17:47)
[2020-03-09] VITALS (9 sets, daily range): BP systolic 116–154; BP diastolic 71–89
[2020-03-09] MEDS: SODIUM CHLORIDE 0.9% 1,000 ML IV SCH ×3 (05:30→17:59)
[2020-03-09 06:06] LABS: ALANINE AMINOTRANSFERASE 119 U/L (12-78); ALBUMIN 1.7 g/dL (3.4-5.0); ANION GAP 8 mmol/L (5-15); CALCIUM 7.1 mg/dL (8.5-10.1); CHLORIDE 107 mmol/L (98-107); CREATININE 0.68 mg/dL (0.7-1.3)
[2020-03-09 06:08] LABS: ALKALINE PHOSPHATASE 114 U/L (45-117); BILIRUBIN,TOTAL 0.9 mg/dL (0.2-1.0)
[2020-03-09 07:37] LABS: BASOPHILS % (AUTO) 1 % (0-1); EOSINOPHILS % (AUTO) 1 % (1-7); LYMPHOCYTES % (AUTO) 13 % (22-44); MEAN CORPUSCULAR HEMOGLOBIN 33.6 pg (27.5-34.5); MEAN CORPUSCULAR HGB CONC 34.9 g/dL (33.2-36.2); MEAN PLATELET VOLUME 7.9 fL (7.4-10.4); MONOCYTES % (AUTO) 8 % (2-9); NEUTROPHILS % (AUTO) 79 % (42-75); PLATELET COUNT 279 x10^3/uL (130-400); RED BLOOD COUNT 2.06 x10^6/uL (4.38-5.82); RED CELL DISTRIBUTION WIDTH 13.7 % (9.4-14.8)
[2020-03-09] MEDS: PANTOPRAZOLE 40 MG IV IVPush SCH ×2 (07:49→20:41)
[2020-03-09] MEDS: TAMSULOSIN 0.4 MG CAP.ER.24H PO SCH (07:50)
[2020-03-09 08:44] LABS: MD SCAN
[2020-03-09] MEDS: DOXYCYCLINE 100MG TABLET PO SCH ×2 (10:16→20:41)
[2020-03-09] MEDS: CEFTRIAXONE PMX 1GM/50ML 50 ML IV SCH (17:56)
[2020-03-10] MEDS: SODIUM CHLORIDE 0.9% 1,000 ML IV SCH ×2 (01:47→09:40)
[2020-03-10 02:11] VITALS: BP 162/90
[2020-03-10 07:14] VITALS: BP 179/99
[2020-03-10 07:24] LABS: CHLORIDE 109 mmol/L (98-107)
[2020-03-10 07:32] LABS: ALANINE AMINOTRANSFERASE 95 U/L (12-78); ALBUMIN 1.9 g/dL (3.4-5.0); ALKALINE PHOSPHATASE 104 U/L (45-117); ANION GAP 6 mmol/L (5-15); CALCIUM 7.4 mg/dL (8.5-10.1); TOTAL PROTEIN 5.4 g/dL (6.4-8.2)
[2020-03-10] MEDS: DOXYCYCLINE 100MG TABLET PO SCH ×2 (09:40→21:21)
[2020-03-10] MEDS: TAMSULOSIN 0.4 MG CAP.ER.24H PO SCH (09:40)
[2020-03-10] MEDS: PANTOPRAZOLE 40 MG IV IVPush SCH (09:40)
[2020-03-10 10:25] LABS: MEAN CORPUSCULAR HEMOGLOBIN 33.2 pg (27.5-34.5); MEAN CORPUSCULAR HGB CONC 34.1 g/dL (33.2-36.2); MEAN PLATELET VOLUME 7.5 fL (7.4-10.4); PLATELET COUNT 273 x10^3/uL (130-400); RED BLOOD COUNT 2.41 x10^6/uL (4.38-5.82); RED CELL DISTRIBUTION WIDTH 13.8 % (9.4-14.8)
[2020-03-10 11:18] LABS: MD YES
[2020-03-10 11:20] LABS: <PLATELET ESTIMATE> ADEQUATE; <PLT MORPHOLOGY> NORMAL PLT MORPH; ANISOCYTOSIS 1+; BAND#(MANUAL) 0.16 x10^3/uL; BANDS%(MANUAL) 2 % (0-7); LYMPH#(MANUAL) 0.97 x10^3/uL (1-3.4); LYMPHS% (MANUAL) 12 % (22-44); METAMYELOCYTES# (MANUAL) 0.08 x10^3/uL (0-0); METAMYELOCYTES% (MANUAL) 1 % (0-1); MONOS#(MANUAL) 0.16 x10^3/uL (0.3-2.7); MONOS% (MANUAL) 2 % (2-9); MYELOCYTES# (MANUAL) 0.08 x10^3/uL (0-0); MYELOCYTES% (MANUAL) 1 % (0-0); PMNS WITH VACUOLES 1+; SEG#(MANUAL) 6.64 x10^3/uL (1.8-6.8); SEGS% (MANUAL) 82 % (42-75)
[2020-03-10 12:05] VITALS: BP 179/83
[2020-03-10] MEDS: LISINOPRIL 10 MG TABLET PO SCH (12:49)
[2020-03-10] MEDS: AMLODIPINE 5 MG TABLET PO SCH (12:49)
[2020-03-10] MEDS: CEFTRIAXONE PMX 1GM/50ML 50 ML IV SCH (17:03)
[2020-03-10 19:02] VITALS: BP 155/90
[2020-03-10] MEDS: PANTOPRAZOLE 40MG TABLET PO SCH (21:21)
[2020-03-11 01:34] VITALS: BP 159/83
[2020-03-11 06:22] LABS: ALBUMIN 1.9 g/dL (3.4-5.0); CALCIUM 7.6 mg/dL (8.5-10.1); CHLORIDE 107 mmol/L (98-107)
[2020-03-11 06:28] LABS: ALANINE AMINOTRANSFERASE 82 U/L (12-78); ALKALINE PHOSPHATASE 108 U/L (45-117); ANION GAP 4 mmol/L (5-15); BILIRUBIN,TOTAL 1.1 mg/dL (0.2-1.0); TOTAL PROTEIN 5.5 g/dL (6.4-8.2)
[2020-03-11 07:43] VITALS: BP 165/91
[2020-03-11 09:33] LABS: BASOPHILS % (AUTO) 1 % (0-1); EOSINOPHILS % (AUTO) 1 % (1-7); LYMPHOCYTES % (AUTO) 11 % (22-44); MEAN CORPUSCULAR HEMOGLOBIN 33.1 pg (27.5-34.5); MONOCYTES % (AUTO) 6 % (2-9); NEUTROPHILS % (AUTO) 82 % (42-75); RED BLOOD COUNT 2.47 x10^6/uL (4.38-5.82); RED CELL DISTRIBUTION WIDTH 14.1 % (9.4-14.8)
[2020-03-11] MEDS: TAMSULOSIN 0.4 MG CAP.ER.24H PO SCH (09:42)
[2020-03-11] MEDS: PANTOPRAZOLE 40MG TABLET PO SCH ×2 (09:42→20:28)
[2020-03-11] MEDS: LISINOPRIL 10 MG TABLET PO SCH (09:42)
[2020-03-11] MEDS: AMLODIPINE 5 MG TABLET PO SCH (09:42)
[2020-03-11] MEDS: DOXYCYCLINE 100MG TABLET PO SCH ×2 (09:42→20:28)
[2020-03-11 10:25] LABS: MD SCAN
[2020-03-11] MEDS ORDERED: FUROSEMIDE 40 MG/4 ML IV ONE (11:30)
[2020-03-11 12:03] VITALS: BP 159/81
[2020-03-11 19:22] VITALS: BP 139/78
[2020-03-11] MEDS: CEFTRIAXONE PMX 1GM/50ML 50 ML IV SCH ×2 (20:28→23:17)
[2020-03-12 01:40] VITALS: BP 150/89
[2020-03-12 07:15] VITALS: BP 147/80
[2020-03-12 07:31] LABS: BASOPHILS % (AUTO) 1 % (0-1); EOSINOPHILS % (AUTO) 1 % (1-7); LYMPHOCYTES % (AUTO) 10 % (22-44); MEAN CORPUSCULAR HEMOGLOBIN 33.8 pg (27.5-34.5); MEAN CORPUSCULAR HGB CONC 34.1 g/dL (33.2-36.2); MEAN PLATELET VOLUME 8.9 fL (7.4-10.4); MONOCYTES % (AUTO) 6 % (2-9); NEUTROPHILS % (AUTO) 83 % (42-75); RED BLOOD COUNT 2.53 x10^6/uL (4.38-5.82); RED CELL DISTRIBUTION WIDTH 13.9 % (9.4-14.8)
[2020-03-12 07:44] LABS: ALBUMIN 1.9 g/dL (3.4-5.0); ANION GAP 4 mmol/L (5-15); CALCIUM 7.8 mg/dL (8.5-10.1); CHLORIDE 102 mmol/L (98-107)
[2020-03-12 07:51] LABS: ALANINE AMINOTRANSFERASE 66 U/L (12-78); ALKALINE PHOSPHATASE 95 U/L (45-117); BILIRUBIN,TOTAL 1.3 mg/dL (0.2-1.0); CREATININE 0.65 mg/dL (0.7-1.3); TOTAL PROTEIN 5.7 g/dL (6.4-8.2)
[2020-03-12] MEDS: TAMSULOSIN 0.4 MG CAP.ER.24H PO SCH (08:14)
[2020-03-12] MEDS: PANTOPRAZOLE 40MG TABLET PO SCH ×2 (08:14→21:31)
[2020-03-12] MEDS: DOXYCYCLINE 100MG TABLET PO SCH ×2 (08:14→21:31)
[2020-03-12] MEDS: LISINOPRIL 10 MG TABLET PO SCH (08:14)
[2020-03-12] MEDS: AMLODIPINE 5 MG TABLET PO SCH (08:14)
[2020-03-12 08:43] LABS: PLATELET COUNT 255 x10^3/uL (130-400)
[2020-03-12 08:57] LABS: MD SCAN
[2020-03-12 13:12] VITALS: BP 113/71
[2020-03-12 18:49] VITALS: BP 115/73
[2020-03-12] MEDS: CEFTRIAXONE PMX 1GM/50ML 50 ML IV SCH (23:03)
[2020-03-13 00:35] VITALS: BP 128/78
[2020-03-13] MEDS: POLYETHYLENE GLYCOL 17 GM PACKET PO PRN ×2 (06:29→18:13)
[2020-03-13 06:36] LABS: BASOPHILS % (AUTO) 1 % (0-1); EOSINOPHILS % (AUTO) 0 % (1-7); LYMPHOCYTES % (AUTO) 12 % (22-44); MEAN CORPUSCULAR HEMOGLOBIN 33.4 pg (27.5-34.5); MEAN CORPUSCULAR HGB CONC 33.5 g/dL (33.2-36.2); MEAN PLATELET VOLUME 8.5 fL (7.4-10.4); MONOCYTES % (AUTO) 7 % (2-9); NEUTROPHILS % (AUTO) 80 % (42-75); PLATELET COUNT 208 x10^3/uL (130-400); RED BLOOD COUNT 2.51 x10^6/uL (4.38-5.82); RED CELL DISTRIBUTION WIDTH 14.5 % (9.4-14.8)
[2020-03-13 06:39] LABS: MD NO
[2020-03-13 06:49] LABS: ALANINE AMINOTRANSFERASE 58 U/L (12-78); ALBUMIN 1.9 g/dL (3.4-5.0); ANION GAP 4 mmol/L (5-15); CALCIUM 7.4 mg/dL (8.5-10.1); CHLORIDE 103 mmol/L (98-107); CREATININE 0.57 mg/dL (0.7-1.3)
[2020-03-13 06:52] LABS: ALKALINE PHOSPHATASE 88 U/L (45-117); BILIRUBIN,TOTAL 1.4 mg/dL (0.2-1.0); TOTAL PROTEIN 5.7 g/dL (6.4-8.2)
[2020-03-13 07:09] VITALS: BP 135/82
[2020-03-13] MEDS: DOXYCYCLINE 100MG TABLET PO SCH (09:37)
[2020-03-13] MEDS: TAMSULOSIN 0.4 MG CAP.ER.24H PO SCH (09:38)
[2020-03-13] MEDS: DOCUSATE 50 MG/5 ML, 10ML UDC PO PRN ×2 (09:38→18:13)
[2020-03-13] MEDS: LISINOPRIL 10 MG TABLET PO SCH (09:38)
[2020-03-13] MEDS: AMLODIPINE 5 MG TABLET PO SCH (09:38)
[2020-03-13] MEDS: PANTOPRAZOLE 40MG TABLET PO SCH ×2 (09:38→22:09)
[2020-03-13 12:35] VITALS: BP 132/73
[2020-03-13 19:04] VITALS: BP 108/68
[2020-03-14 00:20] VITALS: BP 137/85
[2020-03-14] MEDS ORDERED: LIDOCAINE GEL 2%, 5ML TP ONE (00:30)
[2020-03-14] MEDS: ACETAMINOPHEN 325 MG TABLET PO PRN ×2 (01:03→20:05)
[2020-03-14 06:09] VITALS: BP 135/80
[2020-03-14] MEDS: AMLODIPINE 5 MG TABLET PO SCH (08:37)
[2020-03-14] MEDS: LISINOPRIL 10 MG TABLET PO SCH (08:37)
[2020-03-14] MEDS: PANTOPRAZOLE 40MG TABLET PO SCH ×2 (08:37→20:05)
[2020-03-14] MEDS: TAMSULOSIN 0.4 MG CAP.ER.24H PO SCH (08:37)
[2020-03-14 11:15] VITALS: BP 125/80
[2020-03-14 20:03] VITALS: BP 130/78
[2020-03-15 00:47] VITALS: BP 126/80
[2020-03-15 07:16] VITALS: BP 149/61
[2020-03-15] MEDS: TAMSULOSIN 0.4 MG CAP.ER.24H PO SCH (08:35)
[2020-03-15] MEDS: PANTOPRAZOLE 40MG TABLET PO SCH ×2 (08:36→20:44)
[2020-03-15] MEDS: AMLODIPINE 5 MG TABLET PO SCH (08:36)
[2020-03-15] MEDS: LISINOPRIL 10 MG TABLET PO SCH (08:36)
[2020-03-15 13:01] VITALS: BP 142/88
[2020-03-15 20:12] VITALS: BP 137/86
[2020-03-16 00:40] VITALS: BP 139/83
[2020-03-16 04:19] VITALS: BP 156/92
[2020-03-16 06:56] VITALS: BP 146/82
[2020-03-16] MEDS: LISINOPRIL 10 MG TABLET PO SCH (08:46)
[2020-03-16] MEDS: TAMSULOSIN 0.4 MG CAP.ER.24H PO SCH (08:46)
[2020-03-16] MEDS: PANTOPRAZOLE 40MG TABLET PO SCH ×2 (08:46→21:06)
[2020-03-16] MEDS: AMLODIPINE 5 MG TABLET PO SCH (08:46)
[2020-03-16 12:39] VITALS: BP 146/84
[2020-03-16 20:11] VITALS: BP 145/87
[2020-03-17 00:22] VITALS: BP 120/80
[2020-03-17] MEDS: ACETAMINOPHEN 325 MG TABLET PO PRN (00:43)
[2020-03-17 08:24] VITALS: BP 137/86
[2020-03-17] MEDS: PANTOPRAZOLE 40MG TABLET PO SCH ×2 (09:00→21:43)
[2020-03-17] MEDS: TAMSULOSIN 0.4 MG CAP.ER.24H PO SCH (09:32)
[2020-03-17] MEDS: AMLODIPINE 5 MG TABLET PO SCH (09:32)
[2020-03-17] MEDS: LISINOPRIL 10 MG TABLET PO SCH (09:32)
[2020-03-17 12:35] VITALS: BP 128/87
[2020-03-17 19:51] VITALS: BP 128/78
[2020-03-18 00:36] VITALS: BP 134/84
[2020-03-18 07:01] LABS: ANION GAP 5 mmol/L (5-15); CALCIUM 7.9 mg/dL (8.5-10.1); CHLORIDE 103 mmol/L (98-107)
[2020-03-18 07:04] LABS: CREATININE 0.68 mg/dL (0.7-1.3)
[2020-03-18 07:08] LABS: BASOPHILS % (AUTO) 1 % (0-1); EOSINOPHILS % (AUTO) 2 % (1-7); LYMPHOCYTES % (AUTO) 13 % (22-44); MEAN CORPUSCULAR HEMOGLOBIN 33.1 pg (27.5-34.5); MEAN PLATELET VOLUME 8.3 fL (7.4-10.4); MONOCYTES % (AUTO) 8 % (2-9); NEUTROPHILS % (AUTO) 77 % (42-75); PLATELET COUNT 251 x10^3/uL (130-400); RED CELL DISTRIBUTION WIDTH 15.7 % (9.4-14.8)
[2020-03-18 07:31] LABS: MD NO
[2020-03-18] MEDS: TAMSULOSIN 0.4 MG CAP.ER.24H PO SCH (09:07)
[2020-03-18] MEDS: PANTOPRAZOLE 40MG TABLET PO SCH ×2 (09:07→20:06)
[2020-03-18] MEDS: LISINOPRIL 10 MG TABLET PO SCH (09:08)
[2020-03-18] MEDS: AMLODIPINE 5 MG TABLET PO SCH (09:08)
[2020-03-18 12:00] VITALS: BP 134/83
[2020-03-18 19:56] VITALS: BP 135/83
[2020-03-19 01:05] VITALS: BP 129/74
[2020-03-19 06:59] LABS: ANION GAP 7 mmol/L (5-15); CALCIUM 8.4 mg/dL (8.5-10.1); CHLORIDE 104 mmol/L (98-107)
[2020-03-19 07:03] VITALS: BP 134/83
[2020-03-19 07:03] LABS: CREATININE 0.61 mg/dL (0.7-1.3)
[2020-03-19 08:46] LABS: BASOPHILS % (AUTO) 1 % (0-1); EOSINOPHILS % (AUTO) 2 % (1-7); LYMPHOCYTES % (AUTO) 14 % (22-44); MEAN CORPUSCULAR HEMOGLOBIN 32.8 pg (27.5-34.5); MONOCYTES % (AUTO) 7 % (2-9); NEUTROPHILS % (AUTO) 77 % (42-75); PLATELET COUNT 213 x10^3/uL (130-400); RED CELL DISTRIBUTION WIDTH 16.1 % (9.4-14.8)
[2020-03-19 08:54] LABS: MD NO
[2020-03-19] MEDS: TAMSULOSIN 0.4 MG CAP.ER.24H PO SCH (09:09)
[2020-03-19] MEDS: PANTOPRAZOLE 40MG TABLET PO SCH ×2 (09:09→20:43)
[2020-03-19] MEDS: AMLODIPINE 5 MG TABLET PO SCH (09:10)
[2020-03-19] MEDS: LISINOPRIL 10 MG TABLET PO SCH (09:10)
[2020-03-19 13:02] VITALS: BP 107/64
[2020-03-19 19:56] VITALS: BP 119/70
[2020-03-20 01:10] VITALS: BP 134/83
[2020-03-20] MEDS: AMLODIPINE 5 MG TABLET PO SCH (09:58)
[2020-03-20] MEDS: LISINOPRIL 10 MG TABLET PO SCH (09:58)
[2020-03-20] MEDS: PANTOPRAZOLE 40MG TABLET PO SCH ×2 (09:58→20:13)
[2020-03-20] MEDS: TAMSULOSIN 0.4 MG CAP.ER.24H PO SCH (09:58)
[2020-03-20] MEDS ORDERED: HALOPERIDOL DECANOATE 50 MG/ML IM ONE (11:00)
[2020-03-20] MEDS ORDERED: HALOPERIDOL 5 MG/ML IM ONE (11:00)
[2020-03-20 13:03] VITALS: BP 121/77
[2020-03-20] MEDS: LORazepam 2 MG/ML, 1ML IVPush SCH (15:01)
[2020-03-20 21:08] VITALS: BP 110/65
[2020-03-21 01:20] VITALS: BP 128/81
[2020-03-21 06:48] VITALS: BP 119/78
[2020-03-21] MEDS: TAMSULOSIN 0.4 MG CAP.ER.24H PO SCH (10:05)
[2020-03-21] MEDS: LISINOPRIL 10 MG TABLET PO SCH (10:05)
[2020-03-21] MEDS: PANTOPRAZOLE 40MG TABLET PO SCH ×2 (10:05→20:15)
[2020-03-21] MEDS: AMLODIPINE 5 MG TABLET PO SCH (10:05)
[2020-03-21 12:28] VITALS: BP 117/77
[2020-03-21 20:17] VITALS: BP 107/72
[2020-03-22 00:34] VITALS: BP 120/75
[2020-03-22 06:59] VITALS: BP 126/83
[2020-03-22] MEDS: PANTOPRAZOLE 40MG TABLET PO SCH ×2 (10:35→21:38)
[2020-03-22] MEDS: LISINOPRIL 10 MG TABLET PO SCH (10:35)
[2020-03-22] MEDS: TAMSULOSIN 0.4 MG CAP.ER.24H PO SCH (10:35)
[2020-03-22] MEDS: AMLODIPINE 5 MG TABLET PO SCH (10:36)
[2020-03-22 12:41] VITALS: BP 123/76
[2020-03-22 21:05] VITALS: BP 113/68
[2020-03-23 01:55] VITALS: BP 114/72
[2020-03-23 07:10] VITALS: BP 118/73
[2020-03-23] MEDS: LISINOPRIL 10 MG TABLET PO SCH (10:26)
[2020-03-23] MEDS: AMLODIPINE 5 MG TABLET PO SCH (10:26)
[2020-03-23] MEDS: PANTOPRAZOLE 40MG TABLET PO SCH ×2 (10:26→21:07)
[2020-03-23] MEDS: TAMSULOSIN 0.4 MG CAP.ER.24H PO SCH (10:26)
[2020-03-23 12:56] VITALS: BP 120/74
[2020-03-23 19:48] VITALS: BP 112/73
[2020-03-24 00:17] VITALS: BP 131/78
[2020-03-24 06:45] LABS: CHLORIDE 101 mmol/L (98-107)
[2020-03-24 07:19] LABS: ALANINE AMINOTRANSFERASE 52 U/L (12-78); ALBUMIN 2.6 g/dL (3.4-5.0); ANION GAP 4 mmol/L (5-15); CALCIUM 8.3 mg/dL (8.5-10.1); CREATININE 0.69 mg/dL (0.7-1.3)
[2020-03-24 07:21] LABS: ALKALINE PHOSPHATASE 94 U/L (45-117); TOTAL PROTEIN 7.2 g/dL (6.4-8.2)
[2020-03-24 07:59] VITALS: BP 121/81
[2020-03-24 09:05] LABS: BASOPHILS % (AUTO) 1 % (0-1); EOSINOPHILS % (AUTO) 2 % (1-7); LYMPHOCYTES % (AUTO) 13 % (22-44); MEAN CORPUSCULAR HEMOGLOBIN 33.1 pg (27.5-34.5); MEAN CORPUSCULAR HGB CONC 32.9 g/dL (33.2-36.2); MONOCYTES % (AUTO) 9 % (2-9); NEUTROPHILS % (AUTO) 76 % (42-75); RED BLOOD COUNT 3.31 x10^6/uL (4.38-5.82); RED CELL DISTRIBUTION WIDTH 16.4 % (9.4-14.8)
[2020-03-24 09:31] LABS: PLATELET COUNT 308 x10^3/uL (130-400)
[2020-03-24 09:33] LABS: MD SCAN
[2020-03-24] MEDS: PANTOPRAZOLE 40MG TABLET PO SCH ×2 (09:58→20:09)
[2020-03-24] MEDS: TAMSULOSIN 0.4 MG CAP.ER.24H PO SCH (09:58)
[2020-03-24] MEDS: LISINOPRIL 10 MG TABLET PO SCH (09:58)
[2020-03-24] MEDS: AMLODIPINE 5 MG TABLET PO SCH (09:58)
[2020-03-24 12:56] VITALS: BP 108/71
[2020-03-24 18:43] VITALS: BP 109/79
[2020-03-24] MEDS: LORazepam 2 MG/ML, 1ML IVPush SCH (20:09)
[2020-03-25 01:11] VITALS: BP 111/73
[2020-03-25 07:20] VITALS: BP 131/86
[2020-03-25] MEDS: LISINOPRIL 10 MG TABLET PO SCH (09:56)
[2020-03-25] MEDS: TAMSULOSIN 0.4 MG CAP.ER.24H PO SCH (09:56)
[2020-03-25] MEDS: PANTOPRAZOLE 40MG TABLET PO SCH ×2 (09:56→20:26)
[2020-03-25] MEDS: AMLODIPINE 5 MG TABLET PO SCH (09:57)
[2020-03-25 12:25] VITALS: BP 115/70
[2020-03-25 19:19] VITALS: BP 126/76
[2020-03-26 00:26] VITALS: BP 106/62
[2020-03-26 06:50] VITALS: BP 120/78
[2020-03-26] MEDS: PANTOPRAZOLE 40MG TABLET PO SCH ×2 (09:36→20:24)
[2020-03-26] MEDS: AMLODIPINE 5 MG TABLET PO SCH (09:36)
[2020-03-26] MEDS: TAMSULOSIN 0.4 MG CAP.ER.24H PO SCH (09:36)
[2020-03-26] MEDS: LISINOPRIL 10 MG TABLET PO SCH (09:36)
[2020-03-26 12:19] VITALS: BP 114/77
[2020-03-26 20:07] VITALS: BP 110/70
[2020-03-27 01:20] VITALS: BP 110/70
[2020-03-27 07:06] VITALS: BP 118/76
[2020-03-27] MEDS: AMLODIPINE 5 MG TABLET PO SCH (09:55)
[2020-03-27] MEDS: LISINOPRIL 10 MG TABLET PO SCH (09:56)
[2020-03-27] MEDS: TAMSULOSIN 0.4 MG CAP.ER.24H PO SCH (09:56)
[2020-03-27] MEDS: PANTOPRAZOLE 40MG TABLET PO SCH ×2 (09:56→20:40)
[2020-03-27 12:16] VITALS: BP 122/73
[2020-03-27 20:25] VITALS: BP 109/75
[2020-03-28 02:46] VITALS: BP 115/76
[2020-03-28 06:39] VITALS: BP 114/79
[2020-03-28] MEDS: TAMSULOSIN 0.4 MG CAP.ER.24H PO SCH (09:39)
[2020-03-28] MEDS: LISINOPRIL 10 MG TABLET PO SCH (09:39)
[2020-03-28] MEDS: AMLODIPINE 5 MG TABLET PO SCH (09:39)
[2020-03-28] MEDS: PANTOPRAZOLE 40MG TABLET PO SCH ×2 (09:39→22:45)
[2020-03-28 18:28] VITALS: BP 98/68
[2020-03-28] MEDS: LORazepam 2 MG/ML, 1ML IVPush SCH (22:45)
[2020-03-29 00:06] VITALS: BP 118/77
[2020-03-29 06:50] VITALS: BP 109/71
[2020-03-29] MEDS: TAMSULOSIN 0.4 MG CAP.ER.24H PO SCH (07:58)
[2020-03-29] MEDS: PANTOPRAZOLE 40MG TABLET PO SCH ×2 (07:58→21:41)
[2020-03-29] MEDS: AMLODIPINE 5 MG TABLET PO SCH (07:58)
[2020-03-29] MEDS: LISINOPRIL 10 MG TABLET PO SCH (07:58)
[2020-03-29 12:20] VITALS: BP 94/59
[2020-03-29 20:53] VITALS: BP 103/68
[2020-03-30 01:32] VITALS: BP 118/77
[2020-03-30 07:16] VITALS: BP 115/68
[2020-03-30] MEDS: AMLODIPINE 5 MG TABLET PO SCH (10:16)
[2020-03-30] MEDS: TAMSULOSIN 0.4 MG CAP.ER.24H PO SCH (10:16)
[2020-03-30] MEDS: PANTOPRAZOLE 40MG TABLET PO SCH (10:17)
[2020-03-30] MEDS: LISINOPRIL 10 MG TABLET PO SCH (10:17)
[2020-03-30 13:10] VITALS: BP 107/70
[2020-03-30 18:49] VITALS: BP 122/73
[2020-03-31 00:34] VITALS: BP 114/68
[2020-03-31 06:22] VITALS: BP 127/87
[2020-03-31] MEDS: TAMSULOSIN 0.4 MG CAP.ER.24H PO SCH (08:00)
[2020-03-31] MEDS: LISINOPRIL 10 MG TABLET PO SCH (08:00)
[2020-03-31] MEDS: PANTOPRAZOLE 40MG TABLET PO SCH (08:01)
[2020-03-31] MEDS: AMLODIPINE 5 MG TABLET PO SCH (08:02)
[2020-03-31 13:19] VITALS: BP 124/62
[2020-03-31 18:46] VITALS: BP 121/79
[2020-04-01 00:26] VITALS: BP 120/82
[2020-04-01 07:34] VITALS: BP 123/61
[2020-04-01] MEDS: PANTOPRAZOLE 40MG TABLET PO SCH (09:54)
[2020-04-01] MEDS: AMLODIPINE 5 MG TABLET PO SCH (09:54)
[2020-04-01] MEDS: LISINOPRIL 10 MG TABLET PO SCH (09:54)
[2020-04-01] MEDS: TAMSULOSIN 0.4 MG CAP.ER.24H PO SCH (09:54)
[2020-04-01 16:29] VITALS: BP 133/62
[2020-04-01 18:46] VITALS: BP 114/76
[2020-04-02 01:12] VITALS: BP 122/78
[2020-04-02 07:07] VITALS: BP 129/86
[2020-04-02] MEDS: LISINOPRIL 10 MG TABLET PO SCH (10:02)
[2020-04-02] MEDS: PANTOPRAZOLE 40MG TABLET PO SCH (10:02)
[2020-04-02] MEDS: AMLODIPINE 5 MG TABLET PO SCH (10:02)
[2020-04-02] MEDS: TAMSULOSIN 0.4 MG CAP.ER.24H PO SCH (10:02)
[2020-04-02 12:22] VITALS: BP 119/80
[2020-04-02 20:00] VITALS: BP 100/61
[2020-04-03 02:02] VITALS: BP 110/75
[2020-04-03 06:04] LABS: ANION GAP 4 mmol/L (5-15); CALCIUM 9.2 mg/dL (8.5-10.1); CHLORIDE 102 mmol/L (98-107)
[2020-04-03 06:05] LABS: CREATININE 0.73 mg/dL (0.7-1.3)
[2020-04-03 06:59] VITALS: BP 99/69
[2020-04-03] MEDS: PANTOPRAZOLE 40MG TABLET PO SCH (08:36)
[2020-04-03] MEDS: TAMSULOSIN 0.4 MG CAP.ER.24H PO SCH (08:36)
[2020-04-03] MEDS: LISINOPRIL 10 MG TABLET PO SCH (08:37)
[2020-04-03] MEDS: AMLODIPINE 5 MG TABLET PO SCH (08:37)
[2020-04-03] MEDS ORDERED: ZIPRASIDONE 20 MG INJ IM ONE ×2 (10:28→10:30)
[2020-04-03] MEDS: LORazepam 2 MG/ML, 1ML IVPush SCH (11:07)
[2020-04-03 12:50] VITALS: BP 103/71
[2020-04-03 18:58] VITALS: BP 100/63
[2020-04-04 01:43] VITALS: BP 118/75
[2020-04-04 07:00] VITALS: BP 111/75
[2020-04-04] MEDS: AMLODIPINE 5 MG TABLET PO SCH (09:15)
[2020-04-04] MEDS: PANTOPRAZOLE 40MG TABLET PO SCH (09:15)
[2020-04-04] MEDS: LISINOPRIL 10 MG TABLET PO SCH (09:15)
[2020-04-04] MEDS: TAMSULOSIN 0.4 MG CAP.ER.24H PO SCH (09:15)
[2020-04-04 13:19] VITALS: BP 117/80
[2020-04-04] MEDS ORDERED: ZIPRASIDONE 20 MG INJ IM ONE ×2 (15:00→15:30)
[2020-04-04 18:44] VITALS: BP 113/78
[2020-04-04 23:30] VITALS: BP 104/70
[2020-04-05 06:43] VITALS: BP 110/75
[2020-04-05] MEDS: PANTOPRAZOLE 40MG TABLET PO SCH (08:59)
[2020-04-05] MEDS: TAMSULOSIN 0.4 MG CAP.ER.24H PO SCH (08:59)
[2020-04-05] MEDS: LISINOPRIL 10 MG TABLET PO SCH (08:59)
[2020-04-05] MEDS: AMLODIPINE 5 MG TABLET PO SCH (08:59)
[2020-04-05 12:48] VITALS: BP 111/72
[2020-04-05 18:52] VITALS: BP 109/68
[2020-04-06 00:20] VITALS: BP 111/74
[2020-04-06 06:28] VITALS: BP 111/76
[2020-04-06] MEDS: TAMSULOSIN 0.4 MG CAP.ER.24H PO SCH (10:35)
[2020-04-06] MEDS: AMLODIPINE 5 MG TABLET PO SCH (10:35)
[2020-04-06] MEDS: LISINOPRIL 10 MG TABLET PO SCH (10:36)
[2020-04-06] MEDS: PANTOPRAZOLE 40MG TABLET PO SCH (10:36)
[2020-04-06 12:35] VITALS: BP 125/85
[2020-04-06 19:03] VITALS: BP 114/76
[2020-04-07 00:10] VITALS: BP 119/77
[2020-04-07] MEDS: PANTOPRAZOLE 40MG TABLET PO SCH (07:59)
[2020-04-07] MEDS: LISINOPRIL 10 MG TABLET PO SCH (07:59)
[2020-04-07] MEDS: TAMSULOSIN 0.4 MG CAP.ER.24H PO SCH (07:59)
[2020-04-07] MEDS: AMLODIPINE 5 MG TABLET PO SCH (07:59)
[2020-04-07 08:04] VITALS: BP 122/78
[2020-04-07 14:45] VITALS: BP 96/60
[2020-04-07 19:40] VITALS: BP 108/71
[2020-04-08 00:48] VITALS: BP 118/73
[2020-04-08 08:18] VITALS: BP 111/75
[2020-04-08] MEDS: LISINOPRIL 10 MG TABLET PO SCH (08:20)
[2020-04-08] MEDS: PANTOPRAZOLE 40MG TABLET PO SCH (08:20)
[2020-04-08] MEDS: AMLODIPINE 5 MG TABLET PO SCH (08:20)
[2020-04-08] MEDS: TAMSULOSIN 0.4 MG CAP.ER.24H PO SCH (08:20)
[2020-04-08 13:03] VITALS: BP 95/55
[2020-04-08 19:51] VITALS: BP 120/85
[2020-04-09 00:54] VITALS: BP 104/68
[2020-04-09 06:57] VITALS: BP 111/67
[2020-04-09] MEDS: PANTOPRAZOLE 40MG TABLET PO SCH (11:08)
[2020-04-09] MEDS: TAMSULOSIN 0.4 MG CAP.ER.24H PO SCH (11:08)
[2020-04-09 13:29] VITALS: BP 126/81
[2020-04-09 19:50] VITALS: BP 103/64
[2020-04-10 00:25] VITALS: BP 95/71
[2020-04-10 06:52] VITALS: BP 118/78
[2020-04-10] MEDS: TAMSULOSIN 0.4 MG CAP.ER.24H PO SCH (08:59)
[2020-04-10] MEDS: PANTOPRAZOLE 40MG TABLET PO SCH (08:59)
[2020-04-10 12:19] VITALS: BP 136/89
[2020-04-10 20:00] VITALS: BP 118/78
[2020-04-11 01:31] VITALS: BP 132/88
[2020-04-11 07:58] VITALS: BP 131/86
[2020-04-11] MEDS: PANTOPRAZOLE 40MG TABLET PO SCH (08:12)
[2020-04-11] MEDS: TAMSULOSIN 0.4 MG CAP.ER.24H PO SCH (08:12)
[2020-04-11 13:08] VITALS: BP 135/86
[2020-04-11 18:17] VITALS: BP 114/72
[2020-04-12 00:54] VITALS: BP 128/87
[2020-04-12 07:42] VITALS: BP 142/93
[2020-04-12] MEDS: TAMSULOSIN 0.4 MG CAP.ER.24H PO SCH (07:56)
[2020-04-12] MEDS: PANTOPRAZOLE 40MG TABLET PO SCH (07:56)
[2020-04-12 12:57] VITALS: BP 130/82
[2020-04-12 20:00] VITALS: BP 124/81
[2020-04-13 07:29] VITALS: BP 131/88
[2020-04-13] MEDS: PANTOPRAZOLE 40MG TABLET PO SCH (07:30)
[2020-04-13] MEDS: TAMSULOSIN 0.4 MG CAP.ER.24H PO SCH (07:30)
[2020-04-13 15:00] VITALS: BP 135/85
[2020-04-13 19:39] VITALS: BP 130/87
[2020-04-14 02:00] VITALS: BP 129/86
[2020-04-14 07:06] VITALS: BP 134/91
[2020-04-14] MEDS: PANTOPRAZOLE 40MG TABLET PO SCH (07:09)
[2020-04-14] MEDS: TAMSULOSIN 0.4 MG CAP.ER.24H PO SCH (07:09)
[2020-04-14 12:43] VITALS: BP 117/83
[2020-04-14 19:01] VITALS: BP 126/75
[2020-04-15 01:11] VITALS: BP 121/69
[2020-04-15 07:13] VITALS: BP 128/83
[2020-04-15] MEDS: PANTOPRAZOLE 40MG TABLET PO SCH (07:14)
[2020-04-15] MEDS: TAMSULOSIN 0.4 MG CAP.ER.24H PO SCH (07:14)
[2020-04-15 13:30] VITALS: BP 118/81
[2020-04-15 18:42] VITALS: BP 103/70
[2020-04-16 00:16] VITALS: BP 126/86
[2020-04-16 06:56] VITALS: BP 118/84
[2020-04-16] MEDS: PANTOPRAZOLE 40MG TABLET PO SCH (07:12)
[2020-04-16] MEDS: TAMSULOSIN 0.4 MG CAP.ER.24H PO SCH (07:12)
[2020-04-16 12:07] VITALS: BP 131/88
[2020-04-16 19:20] VITALS: BP 127/85
[2020-04-16] MEDS: DOCUSATE 50 MG/5 ML, 10ML UDC PO PRN ×2 (21:01→21:03)
[2020-04-17 01:17] VITALS: BP 126/89
[2020-04-17 06:53] VITALS: BP 134/90
[2020-04-17] MEDS: PANTOPRAZOLE 40MG TABLET PO SCH (08:54)
[2020-04-17] MEDS: TAMSULOSIN 0.4 MG CAP.ER.24H PO SCH (08:54)
[2020-04-17 12:30] VITALS: BP 129/87
[2020-04-17 19:40] VITALS: BP 114/78
[2020-04-18 01:20] VITALS: BP 127/85
[2020-04-18 06:36] VITALS: BP 147/97
[2020-04-18] MEDS: PANTOPRAZOLE 40MG TABLET PO SCH (08:29)
[2020-04-18] MEDS: TAMSULOSIN 0.4 MG CAP.ER.24H PO SCH (08:29)
[2020-04-18 12:56] VITALS: BP 136/91
[2020-04-18 18:53] VITALS: BP 145/91
[2020-04-19 00:32] VITALS: BP 112/69
[2020-04-19 07:47] VITALS: BP 126/86
[2020-04-19] MEDS: PANTOPRAZOLE 40MG TABLET PO SCH (09:00)
[2020-04-19] MEDS: TAMSULOSIN 0.4 MG CAP.ER.24H PO SCH (09:00)
[2020-04-19] MEDS ORDERED: TAMS-11 PO (11:28)
[2020-04-19] MEDS ORDERED: LISI-167 PO (13:53)
[2020-04-19 14:13] VITALS: BP 117/78
== END 2020-04-19 17:39 | disposition home or self-care (01) | DRG 137 ==
LOC: ED 11:54 → EDIP 14:54 → 3N 21:30 → 4WST 03-09 14:12 → 3N 04-06 17:34
PROVIDERS: ADMIT Hospitalist; ATTEND Hospitalist
PROC: 30233N1 Transfusion of Nonautologous Red Blood Cells into Peripheral Vein, Percutaneous Approach (ICD-10-PCS; 2020-03-08)
PROC: 06H03DZ Insertion of Intraluminal Device into Inferior Vena Cava, Percutaneous Approach (ICD-10-PCS; principal; 2020-03-09)
DX: U07.1 COVID-19 (principal); B85.1 Pediculosis due to Pediculus humanus corporis; J12.82 Pneumonia due to coronavirus disease 2019; B88.8 Other specified infestations; D62 Acute posthemorrhagic anemia; D69.6 Thrombocytopenia, unspecified; E43 Unspecified severe protein-calorie malnutrition; E86.0 Dehydration; E87.2 Acidosis; F17.210 Nicotine dependence, cigarettes, uncomplicated; F20.9 Schizophrenia, unspecified; G93.41 Metabolic encephalopathy; I10 Essential (primary) hypertension; I45.10 Unspecified right bundle-branch block; Z66 Do not resuscitate; R73.9 Hyperglycemia, unspecified; K66.1 Hemoperitoneum; R33.9 Retention of urine, unspecified; M62.82 Rhabdomyolysis; Z59.0 Homelessness; Z79.01 Long term (current) use of anticoagulants; Z86.711 Personal history of pulmonary embolism; Z86.718 Personal history of other venous thrombosis and embolism; Z91.14 Patient's other noncompliance with medication regimen; Z68.27 Body mass index [BMI] 27.0-27.9, adult; Z79.899 Other long term (current) drug therapy; I69.354 Hemiplegia and hemiparesis following cerebral infarction affecting left non-dominant side
CPT/HCPCS: 36415; 37191; 70450; 70553; 71045; 74177; 76700; 76937; 80048; 80053; 80074; 80307; 81003; 82040; 82550; 82728; 82962; 83036; 83540; 83550; 83735; 84100; 84145; 84443; 84466; 85014; 85018; 85025; 85520; 85610; 85730; 86480; 86850; 86900; 86923; 87040; 87635; 93926; 93970; 99285; C1880; G0378; J0696; J1644; J1650; J1940; J3010; J3486; J7060; Q9967; 92523-GN; A9575; C9113; J1630; J2060; J2270; J2310; J7030; J7040; P9016; U0003

== ENCOUNTER 2020-04-30 11:15 | Inpatient (IN) | payer MEDICAID ==
[~2020-04-30] VITALS: Ht 180.3 cm; Wt 87.0 kg
[~2020-04-30 11:15] MED LIST changes: +TAMS-11 PO
[2020-04-30] MEDS ORDERED: HALOPERIDOL 5 MG/ML IM ONE (11:30)
[2020-04-30] MEDS ORDERED: SODIUM CHLORIDE FLUSH 10ML SYR IVF ONE (11:30)
[2020-04-30] MEDS ORDERED: SODIUM CHLORIDE 0.9% 1,000 ML IV ONE (11:30)
--- NOTE | 2020-04-30 11:30 | NUR ---
PT BIB EMS. SENT FROM UROLOGY CLINIC FOR ALTERED MENTAL STATUS. PT WAS ADMITTED FOR COVID PNA AND DC LAST WEEK - DURING HOSPITAL STAY HAD A OLSON PLACED FOR URINARY RETENTION. HE HAD AN APPT AT THE UROLOGY CLINIC TODAY TO HAVE OLSON REMOVED. WHEN HE GOT TO THE CLINIC, THE PA, NOTICED HE WAS ALTERED AND WAS SLIGHTLY HOSTILE TOWARDS STATT. PT URINE IN HIS BAG WAS FOUND TO BE "MILKY". PT [id number]. RESTING IN GURNEY. SIDE RAILS UP. MD BEDSIDE FOR ASSESSMENT
[2020-04-30] MEDS ORDERED: HALOPERIDOL 5 MG/ML ONE (11:39)
[2020-04-30] MEDS ORDERED: LORazepam 2 MG/ML, 1ML ONE ×2 (11:40→14:46)
--- NOTE | 2020-04-30 11:42 | NUR ---
PT REFUSING IV. NOTIFIED. SEE MAR FOR INTERVENTIONS
[2020-04-30] MEDS ORDERED: LORazepam 2 MG/ML, 1ML IM ONE (12:00)
[2020-04-30 13:23] LABS: ALANINE AMINOTRANSFERASE 34 U/L (12-78); ANION GAP 4 mmol/L (5-15); CALCIUM 9.2 mg/dL (8.5-10.1); CHLORIDE 105 mmol/L (98-107); CREATININE 0.83 mg/dL (0.7-1.3)
[2020-04-30 13:26] LABS: ALKALINE PHOSPHATASE 116 U/L (45-117); BILIRUBIN,TOTAL 0.7 mg/dL (0.2-1.0)
[2020-04-30 13:29] LABS: MICROSCOPIC INDICATED
--- NOTE | 2020-04-30 13:32 | NUR ---
PT SLEEPING. VS STABLE. PT IS IN A NSR ON MONITOR.
[2020-04-30] MEDS ORDERED: CEFTRIAXONE PMX 1GM/50ML 50 ML IV ONE (14:00)
[2020-04-30] MEDS ORDERED: CEFTRIAXONE PMX 1GM/50ML 50 ML ONE (14:01)
[2020-04-30 14:02] LABS: BASOPHILS % (AUTO) 1 % (0-1); EOSINOPHILS % (AUTO) 0 % (1-7); LYMPHOCYTES % (AUTO) 16 % (22-44); MEAN CORPUSCULAR HEMOGLOBIN 32.4 pg (27.5-34.5); MEAN CORPUSCULAR HGB CONC 33.5 g/dL (33.2-36.2); MEAN PLATELET VOLUME 7.6 fL (7.4-10.4); MONOCYTES % (AUTO) 11 % (2-9); NEUTROPHILS % (AUTO) 71 % (42-75); PLATELET COUNT 266 x10^3/uL (130-400); RED BLOOD COUNT 3.93 x10^6/uL (4.38-5.82); RED CELL DISTRIBUTION WIDTH 15.3 % (9.4-14.8)
[2020-04-30 14:06] LABS: MD NO
--- NOTE | 2020-04-30 14:06 | NUR ---
INÉS OKEEFE - NEXT OF KIN
--- NOTE | 2020-04-30 14:51 | NUR ---
PT REFUSING TO LET RN CHANGE OLSON. NOTIFIED. SEE MAR FOR INTERVENTIONS
[2020-04-30] MEDS ORDERED: LORazepam 2 MG/ML, 1ML IVPush ONE (15:00)
--- NOTE | 2020-04-30 15:15 | NUR ---
PT OLSON CHANGED. PT TOLERATED WELL.
[2020-04-30] MEDS ORDERED: ONDANSETRON ODT 4 MG PO PRN (15:30)
[2020-04-30] MEDS ORDERED: ACETAMINOPHEN 325 MG TABLET PO PRN (15:30)
[2020-04-30] MEDS ORDERED: LACTATED RINGERS 1,000 ML IV ONE (15:30)
[2020-04-30] MEDS ORDERED: hydrALAzine 20 MG/ML, 1ML IVPush PRN (15:30)
[2020-04-30] MEDS ORDERED: BUTALB/APAP/CAFFEINE 50MG/325MG/40MG PO PRN ×2 (15:30)
[2020-04-30] MEDS ORDERED: BACLOFEN 10 MG TABLET PO PRN (15:30)
[2020-04-30] MEDS ORDERED: ENALAPRILAT 1.25 MG/ML, 2ML IVPush PRN (15:30)
[2020-04-30] MEDS ORDERED: ONDANSETRON 2MG/ML, 2ML IVPush PRN (15:30)
[2020-04-30 16:15] VITALS: BP 117/80
[2020-04-30] MEDS: ENOXAPARIN 40 MG/0.4 ML SQ SCH (17:27)
[2020-04-30 20:04] VITALS: BP 108/76
[2020-04-30] MEDS ORDERED: CEFTRIAXONE PMX 1GM/50ML 50 ML IV SCH (21:00)
[2020-04-30] MEDS: MELATONIN 5 MG TABLET PO SCH (21:25)
[2020-05-01 01:22] VITALS: BP 98/68
[2020-05-01] MEDS: CEFTRIAXONE PMX 1GM/50ML 50 ML IV SCH ×2 (02:24→14:30)
[2020-05-01 05:27] LABS: BASOPHILS % (AUTO) 1 % (0-1); EOSINOPHILS % (AUTO) 1 % (1-7); LYMPHOCYTES % (AUTO) 20 % (22-44); MEAN CORPUSCULAR HEMOGLOBIN 31.7 pg (27.5-34.5); MEAN CORPUSCULAR HGB CONC 33.3 g/dL (33.2-36.2); MONOCYTES % (AUTO) 11 % (2-9); NEUTROPHILS % (AUTO) 68 % (42-75); PLATELET COUNT 155 x10^3/uL (130-400); RED BLOOD COUNT 3.68 x10^6/uL (4.38-5.82); RED CELL DISTRIBUTION WIDTH 15.2 % (9.4-14.8)
[2020-05-01 05:28] LABS: MD NO
[2020-05-01 05:38] LABS: ALBUMIN 2.6 g/dL (3.4-5.0); ANION GAP 6 mmol/L (5-15); CALCIUM 8.5 mg/dL (8.5-10.1); CHLORIDE 105 mmol/L (98-107)
[2020-05-01 05:40] LABS: CREATININE 0.65 mg/dL (0.7-1.3)
[2020-05-01 07:41] VITALS: BP 120/77
[2020-05-01 12:42] VITALS: BP 121/80
[2020-05-01] MEDS: ENOXAPARIN 40 MG/0.4 ML SQ SCH (15:44)
[2020-05-01 20:04] VITALS: BP 117/76
[2020-05-01] MEDS: MELATONIN 5 MG TABLET PO SCH (21:00)
[2020-05-02 01:38] VITALS: BP 120/75
[2020-05-02] MEDS: CEFTRIAXONE PMX 1GM/50ML 50 ML IV SCH ×2 (02:13→14:25)
[2020-05-02 07:22] VITALS: BP 130/84
[2020-05-02] MEDS: OLANZAPINE 5 MG TABLET PO SCH (09:00)
[2020-05-02 13:22] VITALS: BP 134/84
[2020-05-02] MEDS: ENOXAPARIN 40 MG/0.4 ML SQ SCH (16:03)
[2020-05-02 19:43] VITALS: BP 128/87
[2020-05-02] MEDS: MELATONIN 5 MG TABLET PO SCH (21:00)
[2020-05-03 01:23] VITALS: BP 130/82
[2020-05-03] MEDS: CEFTRIAXONE PMX 1GM/50ML 50 ML IV SCH (01:50)
[2020-05-03 07:58] VITALS: BP 142/90
[2020-05-03] MEDS: OLANZAPINE 5 MG TABLET PO SCH (09:00)
[2020-05-03] MEDS ORDERED: OLAN5TAB9 PO (10:23)
[2020-05-03] MEDS ORDERED: LEVO750T6 PO (10:23)
[2020-05-03] MEDS: LEVOFLOXACIN 750 MG TABLET PO ONE ×2 (10:30→10:48)
[2020-05-03 13:32] VITALS: BP 123/79
[2020-05-03] MEDS: ENOXAPARIN 40 MG/0.4 ML SQ SCH (15:30)
[2020-05-03] MEDS: MELATONIN 5 MG TABLET PO SCH (19:45)
[2020-05-03 20:18] VITALS: BP 143/93
== END 2020-05-03 20:45 | disposition home or self-care (01) | DRG 466 ==
LOC: ED 13:14 → EDIP 14:54 → 4NE 16:09
PROVIDERS: ADMIT Hospitalist; ATTEND Family Medicine
PROC: 0T9B70Z Drainage of Bladder with Drainage Device, Via Natural or Artificial Opening (ICD-10-PCS; principal; 2020-04-30)
DX: T83.511A Infection and inflammatory reaction due to indwelling urethral catheter, initial encounter (principal); D64.9 Anemia, unspecified; E44.1 Mild protein-calorie malnutrition; E86.0 Dehydration; F17.200 Nicotine dependence, unspecified, uncomplicated; F20.0 Paranoid schizophrenia; G93.41 Metabolic encephalopathy; N39.0 Urinary tract infection, site not specified; Z20.822 Contact with and (suspected) exposure to COVID-19; Z68.26 Body mass index [BMI] 26.0-26.9, adult; Y92.89 Other specified places as the place of occurrence of the external cause; I10 Essential (primary) hypertension; I45.10 Unspecified right bundle-branch block; Y84.6 Urinary catheterization as the cause of abnormal reaction of the patient, or of later complication, without mention of misadventure at the time of the procedure; Z86.711 Personal history of pulmonary embolism; Z86.718 Personal history of other venous thrombosis and embolism
CPT/HCPCS: 36415; 80053; 80069; 81001; 83605; 83735; 85025; 87040; 87077; 87086; 87106; 87186; 87635; 96365; 96372; 96375; 99285; G0378; J0696; J1650; J1630; J2060; J7030; J7120

== ENCOUNTER 2020-05-07 13:57 | Emergency (ER) | payer MEDICAID ==
[~2020-05-07] VITALS: Ht 182.9 cm; Wt 90.0 kg
[~2020-05-07 13:57] MED LIST changes: +LEVO750T6 PO; +OLAN5TAB9 PO
--- NOTE | 2020-05-07 14:12 | NUR ---
PT BIB BY [facility]. PT STATED THAT HE HAS HAD GENERALIZED WEAKNESS FOR 3 WEEKS AND HAS BEEN PROGRESSIVELY GETTING WORSE. PT UNABLE TO MOVE LUE AND BLE WITHOUT IT BEING PAINFUL. ROLANDA HULL AT BEDSIDE FOR ASSESSMENT.
--- NOTE | 2020-05-07 14:14 | NUR ---
UA ORDERED, PT STATED THAT HE CANNOT URINATE, BUT REFUSED STRAIGHT CATH. PT EDUCATED THAT UA WAS ORDERED AND URINAL GIVEN TO PT TO OBTAIN SAMPLE.
[2020-05-07 14:32] LABS: BASOPHILS % (AUTO) 1 % (0-1); EOSINOPHILS % (AUTO) 0 % (1-7); LYMPHOCYTES % (AUTO) 11 % (22-44); MEAN CORPUSCULAR HEMOGLOBIN 31.7 pg (27.5-34.5); MEAN PLATELET VOLUME 9.3 fL (7.4-10.4); MONOCYTES % (AUTO) 7 % (2-9); NEUTROPHILS % (AUTO) 81 % (42-75); PLATELET COUNT 180 x10^3/uL (130-400); RED BLOOD COUNT 3.81 x10^6/uL (4.38-5.82); RED CELL DISTRIBUTION WIDTH 15.6 % (9.4-14.8)
[2020-05-07 14:35] LABS: ALANINE AMINOTRANSFERASE 53 U/L (12-78); ALBUMIN 2.3 g/dL (3.4-5.0); ANION GAP 7 mmol/L (5-15); CALCIUM 8.4 mg/dL (8.5-10.1); CHLORIDE 108 mmol/L (98-107)
[2020-05-07 14:38] LABS: ALKALINE PHOSPHATASE 115 U/L (45-117); BILIRUBIN,TOTAL 0.4 mg/dL (0.2-1.0); CREATININE 0.82 mg/dL (0.7-1.3); TOTAL PROTEIN 6.9 g/dL (6.4-8.2)
[2020-05-07 14:40] LABS: MD NO
--- NOTE | 2020-05-07 15:30 | NUR ---
PT RESTING COMFORTABLY IN BED. PT STILL UNABLE TO URINATE AND IS STILL REFUSING STRAIGHT CATH
--- NOTE | 2020-05-07 16:14 | NUR ---
PT CONTINUES TO REFUSE STRAIGHT CATH FRO URINE SAMPLE. EDUCATION PROVIDED. JACKELINE LEE NOTIFIED.
--- NOTE | 2020-05-07 16:56 | NUR ---
Discharge instructions reviewed with pt. [facility] transport set up to take pt back to [facility] living.
--- NOTE | 2020-05-07 17:59 | NUR ---
Pt resting comfortably. Awaiting transport back to [facility].
--- NOTE | 2020-05-07 18:23 | NUR ---
Attempted to call report to pts senior care about returning.
--- NOTE | 2020-05-07 18:58 | NUR ---
Report given to Lauren JACKSON
--- NOTE | 2020-05-07 19:11 | NUR ---
pt discharged and taken home by [facility].
[2020-05-07 19:12] VITALS: BP 111/76
== END 2020-05-07 19:13 | disposition home or self-care (01) ==
LOC: ED 15:32
DX: R53.1 Weakness (principal); F20.9 Schizophrenia, unspecified; R00.0 Tachycardia, unspecified; I10 Essential (primary) hypertension
CPT/HCPCS: 36415; 80053; 85025; 93005; 99285